=== PATIENT | female | born 1960 | race Caucasian/White ===

== ENCOUNTER 2023-07-29 09:55 | Emergency (ER) | payer BC, SELFPAY ==
[2023-07-29] VITALS (8 sets, daily range): BP systolic 119–141; BP diastolic 69–79; PULSE 94; BMI 20.7
[2023-07-29 10:22] LABS: % Basophils 0.3 % (0-2); % Eosinophils 0.3 % (0-6); % Immature Granulocytes 0.5 % (0-0.5); % Lymphocytes 8.1 % (20.5-51.1); % Monocytes 3.9 % (1.7-9.3); % Neutrophils 86.9 % (42.2-75.2); Absolute Immature Granulocytes 0.1 10^3/uL (0-0.05); Absolute Lymphocytes 0.9 10^3/uL (1.2-3.4); Absolute Monocytes 0.4 10^3/uL (0.1-0.6); Absolute Neutrophils 9.4 10^3/uL (1.4-6.5); Hematocrit 39.3 % (37.0-47.0); Hemoglobin 13.4 g/dL (12.0-16.0); Mean Corp Hgb Conc. 34.1 g/dL (33.0-37.0); Mean Corpuscular Hgb 29.5 pg (27.0-31.0); Mean Corpuscular Volume 86.6 fL (81.0-99.0); Mean Platelet Volume 9.2 fL (7.4-10.4); Nucleated Red Blood Cells % 0 %; Platelet Count 228 10^3/uL (130-400); Red Blood Cell Count 4.54 10^6/uL (4.20-5.40); White Blood Cell Count 10.8 10^3/uL (4.8-10.8)
[2023-07-29 10:35] LABS: ALT (SGPT) 19 U/L (0-35); AST (SGOT) 25 U/L (14-36); Albumin 4.6 g/dl (3.5-5.0); Alkaline Phosphatase 70 U/L (38-126); Blood Urea Nitrogen 20 mg/dl (7-17); Calcium 9.5 mg/dl (8.4-10.2); Carbon Dioxide 27 mmol/L (22-30); Chloride 102 mmol/L (98-107); Estimated Creatinine Clearance 81 ml/min; Glucose 147 mg/dl (70-99); Potassium 4.3 mmol/L (3.5-5.1); Sodium 136 mmol/L (135-145); Total Bilirubin 0.5 mg/dl (0.2-1.3); Total Protein 7.4 g/dl (6.3-8.2); eGFR > 60.00
--- NOTE | 2023-07-29 10:46 | ED.GENMED ---
History of Present Illness
<Gretel Richards PA-C - Last Filed: 07/29/23 18:39>
General
Chief Complaint: Dizziness
Source: patient
Exam Limitations: none
Time Seen by Provider: 07/29/23 10:46
Nursing documentation reviewed up to this point in time: agreed with
Travel History
Have you had any contact with someone who has COVID-19?: No
Do you have any symptoms of coronavirus? Fever > 100 degrees, chills, cough, shortness of breath, sore throat, loss of taste or smell, muscle aches, or headache?: No
History of Present Illness
History of Present Illness:
62-year-old female with past medical history of migraines, bladder cancer in 2015, presenting emergency department today via EMS for concerns of persistent nausea and vomiting. Patient states that when she walks around, she feels like she is in a
fall down, feels like the room spinning. Patient has had similar episodes like this in the past. Patient states in the past, they have lasted a few hours to a few days at a time. Patient states that she usually goes to sleep when this happens,
and eventually the episode resolved. Patient states that closing her eyes makes her less dizzy. Patient is from [place], visiting family for [place] today, she reports that her symptoms are so severe that she called EMS. Patient denies any
fevers or chills, difficulty ambulating, visual changes, slurred speech, motor weakness. Patient denies headache
Review of Systems
<Gretel Richards PA-C - Last Filed: 07/29/23 18:39>
Review of Systems
All Other Systems: ROS reviewed and negative except as documented in HPI and ROS
Phy Exam
<Gretel Richards PA-C - Last Filed: 07/29/23 18:39>
Physical Exam
Physical Exam:
Vitals: Patient's vital signs are stable
General: Patient seen lying in hospital bed with eyes closed, patient appears uncomfortable
Skin: Warm and dry, no rashes or lesions
Head: Normocephalic, atraumatic
Eyes: EOMs intact, no nystagmus.
Cardiac: Regular rate and rhythm, no murmurs
Pulm: Normal respiratory effort, no wheezes, rales, rhonchi
Abdomen: No abdominal tenderness
Musculoskeletal: Patient has no tenderness palpation of cervical spine
Neuro: CN 2 through 12 intact. Patient awake and alert, oriented x 3. No focal neurologic deficits.
Course
<Gertel Richards PA-C - Last Filed: 07/29/23 18:39>
Orders/Labs/Results
Orders:
Orders
07/29/23 09:58
EKG [Electrocardiogram (*1)] Urgent
Reason for Study: Vertigo / Dizzy
07/29/23 09:59
EKG- Treatment ONCE
07/29/23 10:17
Complete Blood Count/With Diff Urgent
Comprehensive Metabolic Panel Urgent
07/29/23 11:21
CT Head W/o Iv Contrast Urgent
Comment:
Reason For Exam: rapid onset dizziness, vomiting
Ondansetron Injectable [Zofran] 4 mg IV NOW STA
PT Consult [Pt Eval And Treat] Urgent
Activity Level: With Assistance
07/29/23 14:14
Diphenhydramine [Benadryl] 12.5 mg IV NOW STA
07/29/23 14:44
COVID-19 Antigen Urgent
Source: Nasal Swab
Influenza A+B Rapid Molecular Urgent
FERNANDO Source: Nasal Swab
Specimen Description:
Abnormal Lab Results
07/29/23
10:17
Abs Immat Gran (auto) 0.1 H 10^3/uL
(0-0.05)
Absolute Neuts (auto) 9.4 H 10^3/uL
(1.4-6.5)
Absolute Lymphs (auto) 0.9 L 10^3/uL
(1.2-3.4)
Neutrophils % 86.9 H %
(42.2-75.2)
Lymphocytes % 8.1 L %
(20.5-51.1)
BUN 20 H mg/dl
(7-17)
Creatinine 0.5 L mg/dL
(0.6-1.0)
Glucose 147 H mg/dl
(70-99)
07/29/23 10:17
07/29/23 10:17
Vital Signs
Initial and Last Documented VS:
Initial Vital Signs
Pulse Resp BP Pulse Ox
81 10 136/74 100
07/29/23 10:00 07/29/23 10:00 07/29/23 10:00 07/29/23 10:00
Last Documented Vital Signs
Temp Pulse Resp BP Pulse Ox
97.4 F 95 16 132/69 97
07/29/23 16:34 07/29/23 16:34 07/29/23 16:34 07/29/23 16:34 07/29/23 16:34
<Alvarez Guerrero, DO - Last Filed: 07/29/23 14:19>
Orders/Labs/Results
Orders:
Orders
07/29/23 09:58
EKG [Electrocardiogram (*1)] Urgent
Reason for Study: Vertigo / Dizzy
07/29/23 09:59
EKG- Treatment ONCE
07/29/23 10:17
Complete Blood Count/With Diff Urgent
Comprehensive Metabolic Panel Urgent
07/29/23 11:21
CT Head W/o Iv Contrast Urgent
Comment:
Reason For Exam: rapid onset dizziness, vomiting
Ondansetron Injectable [Zofran] 4 mg IV NOW STA
PT Consult [Pt Eval And Treat] Urgent
Activity Level: With Assistance
07/29/23 14:14
Diphenhydramine [Benadryl] 12.5 mg IV NOW STA
07/29/23 14:44
COVID-19 Antigen Urgent
Source: Nasal Swab
Influenza A+B Rapid Molecular Urgent
FERNANDO Source: Nasal Swab
Specimen Description:
Abnormal Lab Results
07/29/23
10:17
Abs Immat Gran (auto) 0.1 H 10^3/uL
(0-0.05)
Absolute Neuts (auto) 9.4 H 10^3/uL
(1.4-6.5)
Absolute Lymphs (auto) 0.9 L 10^3/uL
(1.2-3.4)
Neutrophils % 86.9 H %
(42.2-75.2)
Lymphocytes % 8.1 L %
(20.5-51.1)
BUN 20 H mg/dl
(7-17)
Creatinine 0.5 L mg/dL
(0.6-1.0)
Glucose 147 H mg/dl
(70-99)
07/29/23 10:17
07/29/23 10:17
Vital Signs
Initial and Last Documented VS:
Initial Vital Signs
Pulse Resp BP Pulse Ox
81 10 136/74 100
07/29/23 10:00 07/29/23 10:00 07/29/23 10:00 07/29/23 10:00
Last Documented Vital Signs
Temp Pulse Resp BP Pulse Ox
97.4 F 95 16 132/69 97
07/29/23 16:34 07/29/23 16:34 07/29/23 16:34 07/29/23 16:34 07/29/23 16:34
<Gretel Richards PA-C - Last Filed: 07/29/23 18:39>
MDM/Problems Addressed
Differential Diagnosis Includes:
Differentials include vestibular neuritis, influenza, COVID-19, BPPV, posterior circulation stroke, labyrinthitis, vestibular migraine
MDM/Problems Addressed:
Nausea and vomiting
Chronic conditions affecting care: Other (Migraine disorder, bladder cancer)
<KATHY Olmos Last Filed: 07/29/23 18:39>
*Pulse Oximetry
Patient hypoxic: no
*Critical Care Note
Total Time (30-74mins, 75-104mins- exclusive of procedures): Not Applicable
Data Reviewed
Review of Other/Old Records Reveals: Records (No previous records in [facility] to review) and Discharge Summary (No discharge summary to [facility] to review)
<KATHY Olmos Last Filed: 07/29/23 18:39>
Patient Management
Escalation/DeEscalation of care consider admission/obs:
62-year-old female with past medical history of migraines, bladder cancer in 2015, presenting emergency department today via EMS for concerns of persistent nausea and vomiting. Patient had similar episodes in the past. Patient saw her family
doctor for this who is not concerned about the symptoms and they did not do any further workup. Patient is never had a CAT scan for his pulm. Emergency department, was negative for any acute intracranial abnormality. Her CBC and BMP unremarkable.
Her EKG concern normal sinus rhythm with no ischemic changes. Patient was evaluated by physical therapy who determined no vestibular cause to her symptoms. Patient was treated with Zofran and Benadryl, which significantly improved her symptoms
from before, however patient still has some lingering nausea and dizziness. Admission was offered to patient, considering patient has had similar episodes in the past, her CT of the head is negative, and patient has no focal neurologic deficits,
patient stable for discharge and can follow-up with her primary care provider. Patient sent home with Zofran to use as needed.
ED Attending Note
<Gretel Richards PA-C - Last Filed: 07/29/23 18:39>
-
Portions of this chart may have been created with voice recognition software.� Occasional wrong word or��sound alike� substitutions may have occurred due to the inherent limitations of voice recognition software.
<Alvarez Guerrero DO - Last Filed: 07/29/23 14:19>
ED Attending Note
Patient seen and examined by attending physician: Yes
I performed a history and physical exam of patient and discussed management with resident, I reviewed resident's note and agree with documented findings and plan of care.: Yes
ED Attending Note:
I have reviewed and agree with history and treatment plan by Gretel Richards. My exam revealed
Physical Exam
General: no apparent distress, not acutely ill
Neck: supple. no meningeal signs. normal posterior pharynx
Heart: s1/s2 regular rate and rhythm, no murmur. equal radial
pulses.
HEENT: Pupils equal round reactive to light, EOMI
Lungs: no acute respiratory distress. clear bilaterally
Abdomen: normal bowel sounds. not tender. no CVAT
Neuro: alert and oriented. no focal neurological deficits cranial nerves II through XII intact
Skin: no rash
Psychiatric: well kept. interactive and cooperative
Extremities: no edema. no calf tenderness. negative homans. good distal pulses
Ambulates without difficulty. Patient complains of feeling off. CT head no acute findings.
Discharge Plan
Departure
Patient Disposition: Home (Routine Discharge)
Date of Disposition: 07/29/23
Time of Disposition: 15:41
Patient with high blood pressure during this ER visit?: Yes
Condition: Good
Discharge Problem:
Dizziness
Instructions: Dizziness, BLOOD PRESSURE, Acute Nausea and Vomiting
Prescriptions:
New
ondansetron 4 mg tablet,disintegrating
4 mg PO Q6H PRN (Reason: nausea and vomiting) Qty: 20 0RF
Referrals:
UNKNOWN - PT DOES,NOT KNOW [Family Provider] -
Activity Restrictions/Additional Instructions:
Please follow-up with her primary care provider.
I sent Belén to your pharmacy. You can use 1 tablet under the tongue every 6 hours as needed for nausea/vomiting.
Please return emergency department should you experience chest pain, shortness of breath, persistent or recurring dizziness nausea, intractable vomiting, or other concerning signs or symptoms.
Interventions
Interventions:
*Risk Screen - Suicide Last Done: 07/29/23 10:06
*General Assessment Last Done: 07/29/23 10:06
*Neglect/Abuse Screening Last Done: 07/29/23 10:06
ED- Fall Risk Assessment Last Done: 07/29/23 16:34
*ED COVID-19 Vaccine History Last Done: 07/29/23 10:06
*Nursing Disposition Last Done: 07/29/23 16:34
ED- Neurological Assessment Last Done: 07/29/23 11:10
ED- Cardiac Assessment Last Done: 07/29/23 14:00
ED Swallowing Screen Last Done: 07/29/23 12:36
Discharge Date and Time
Discharge Date/Time: 07/29/23 16:36
Print Language: NEPALI
[2023-07-29] MEDS: ZOFRAN 4 MG IV (11:42)
[2023-07-29] MEDS: BENADRYL 12.5 MG IV (14:40)
[2023-07-29 15:13] LABS: COVID-19 Antigen Negative (Negative)
== END 2023-07-29 16:36 | disposition home or self-care (01) ==
LOC: EMR 09:55
PROVIDERS: Physician Assistant; EMERGENCY PHYSICIAN Emergency Medicine
DX: R42 Dizziness and giddiness (principal); R03.0 Elevated blood-pressure reading, without diagnosis of hypertension
CPT/HCPCS: 99285; 70450; 80053; 85025; 87502; 87811; 93005